=== PATIENT | male | born 1990 | race Hispanic/Latino ===

== ENCOUNTER 2017-06-06 07:27 | Emergency (ER) | payer MEDICAID | END 2017-06-06 08:29 | disposition home or self-care (01) | LOC: EDH 07:27 | DX: K21.9 Gastro-esophageal reflux disease without esophagitis (principal); Z87.891 Personal history of nicotine dependence; Z88.8 Allergy status to other drugs, medicaments and biological substances | CPT/HCPCS: 99281 ==

== ENCOUNTER 2017-09-14 15:11 | Emergency (ER) | payer MEDICAID ==
[2017-09-14] MEDS ORDERED: ACETAMINOPHEN 325 MG TAB ONE (15:23)
== END 2017-09-14 16:27 | disposition home or self-care (01) ==
LOC: EDH 15:11
DX: S63.8X1A Sprain of other part of right wrist and hand, initial encounter (principal); K21.9 Gastro-esophageal reflux disease without esophagitis; Z87.891 Personal history of nicotine dependence; W22.8XXA Striking against or struck by other objects, initial encounter; Y93.89 Activity, other specified; Y92.098 Other place in other non-institutional residence as the place of occurrence of the external cause; Y99.8 Other external cause status
CPT/HCPCS: 73130

== ENCOUNTER 2024-08-17 07:20 | Emergency (ER) | payer BC, MEDICAID ==
[~2024-08-17] VITALS: Ht 172.7 cm; Wt 77.1 kg
[2024-08-17 07:57] LABS: COVID19 (SARS ANTIGEN RAPID) PRESUMPTIVE NEGATIVE (NEGATIVE); INFLUENZA TYPE A Negative For Type A (NEGATIVE); INFLUENZA TYPE B Negative For Type B (NEGATIVE)
[2024-08-17] MEDS ORDERED: acetaMINOPHEN 500 MG TABLET PO ONE (08:00)
[2024-08-17] MEDS: Solu-medROL 125MG VIAL IM ONE (08:02)
[2024-08-17] MEDS: acetaMINOPHEN 500 MG TABLET PO ONE (08:02)
[2024-08-17] MEDS: IpraTROPium/alBUTERol SULFATE 3 ML SOLUTION IH ONE (08:03)
[2024-08-17 08:05] VITALS: PULSE 119; RESP 20
[2024-08-17 08:42] VITALS: BP 170/107; PULSE 87; RESP 20; TEMP 98.3; O2SAT 100
--- NOTE | 2024-08-17 09:01 | ERN ---
General Chief Complaint: Cough Stated Complaint: COLD/FLU Time Seen by MD: 07:41 Source: patient History of Present Illness Initial Comments PATIENT IS A 34-YEAR-OLD MALE COMING IN TO BE EVALUATED FOR FLU-LIKE SYMPTOMS. PER PATIENT HE WAS EXPOSED TO FLU BY HIS SON. HE STATES THAT HIS SON WAS NOT POSITIVE BUT HAS SIMILAR SYMPTOMS HE HAS A. PATIENT WAS STATE HE HAS BEEN HAS A SORE THROAT WELL. Allergies: Coded Allergies: No Known Drug Allergies (Unverified Allergy, Unknown, 08/17/24) Past Medical History Past Medical History: No Pertinent History Past Surgical History: None ROS Dictation CONSTITUTIONAL: CHILLS, NO FEVER, NO WEAKNESS, NO DIAPHORESIS, NO MALAISE. HEAD/FACE: NO SIGNS OF TRAUMA. EENT: NO EYE PAIN, NO BLURRED VISION, NO TEARING, NO DOUBLE VISION, NO EAR PAIN, NO EAR DISCHARGE, NO NOSE PAIN, NO NASAL CONGESTION, NO THROAT PAIN, NO THROAT SWELLING, NO MOUTH PAIN. RESPIRATORY: COUGH, NO ORTHOPNEA, NO SOB, NO STRIDOR, NO WHEEZING. CARDIOVASCULAR: NO CHEST PAIN, NO EDEMA, NO PALPITATIONS, NO SYNCOPE. GASTROINTESTINAL/ABDOMINAL: NO ABDOMINAL PAIN, NO CONSTIPATION, NO DIARRHEA, NO NAUSEA, NO VOMITING. GENITOURINARY: NO ABNORMAL DISCHARGE, NO DYSURIA, NO FREQUENT URINATION, NO HEMATURIA. NO COMPLAINTS OF PAIN IN THE GENITALS. MUSCULOSKELETAL: NO BACK PAIN, NO GOUT, NO JOINT PAIN, NO JOINT SWELLING, NO MUSCLE PAIN, NO MUSCLE STIFFNESS, NO NECK PAIN. INTEGUMENTARY: NO CHANGE IN COLOR, NO CHANGE IN HAIR/NAILS, NO DRYNESS, NO LESION, NO LUMPS, NO RASH. NEUROLOGICAL/PSYCH: NO ANXIETY, NOT DEPRESSED, NO EMOTIONAL PROBLEM, NO HEADACHE, NO NUMBNESS, NO PRE-EXISTING DEFICIT, NO HISTORY OF SEIZURES, NO TREMORS, NO WEAKNESS. HEMATOLOGIC/LYMPHATIC: NOT ANEMIC, NO HISTORY OF BLOOD CLOTS, NO APPARENT BLEEDING, NO BRUISING, GLANDS NOT SWOLLEN. ALL SYSTEMS NEGATIVE, EXCEPT NOTED. Physical Exam Physical Exam Dictation VITAL SIGNS: REVIEWED. GENERAL APPEARANCE: ALERT, ORIENTED X3, NO ACUTE DISTRESS, OBESE. HEAD AND FACE: NON-TRAUMATIC. EYES: PERRL, PINK CONJUNCTIVAS, EYELID NO TRAUMA, ANTERIOR CHAMBER CLEAR. EARS: PINNAS INTACT AND NO SIGNS OF TRAUMA OR ERYTHEMA. EAR CANALS CLEAR AND NO DISCHARGE. TMS NO ERYTHEMA. NOSE: NO DISCHARGE, NO BLEEDING. OROPHARYNX: MOUTH NORMAL, TEETH NO CARIES, TONGUE PINK. PHARYNX CLEAR, NO ERYTHEMA. TONSILS NO EXUDATES, NO ABSCESSES NOTED. MUCOUS MEMBRANE MOIST. NECK: SUPPLE, NON-TENDER, NO THYROMEGALY, NO MASSES, NO JVD, NO BRUITS. BREAST: DEFERRED. CHEST: NO TENDERNESS, NO CREPITUS, NO PARADOXICAL MOVEMENT, NO RETRACTIONS. LUNGS: CLEAR, WELL-VENTILATED, SYMMETRIC, NO RALES, NO WHEEZING, NO RHONCHI, NO STRIDOR, GOOD BREATH SOUNDS BILATERALLY. HEART: REGULAR RATE, REGULAR RHYTHM, NO MURMUR, NO GALLOPS. VASCULAR: NO PERIPHERAL EDEMA. ABDOMEN: SOFT, POSITIVE BOWEL SOUNDS, NONDISTENDED, NO GUARDING, NONTENDER, NO REBOUND, NO MASSES NO HEPATOMEGALY, NO SPLENOMEGALY, NO REEDER'S SIGN, NO HERNIAS. RECTAL: DEFERRED. GENITAL: DEFERRED. NEUROLOGICAL: NORMAL SPEECH, GROSS MOTOR FUNCTION INTACT, GROSS SENSORY FUNCTION INTACT. MUSCULOSKELETAL: NECK NONTENDER, FULL RANGE OF MOTION, BACK NONTENDER, FULL RANGE OF MOTION. EXTREMITIES: NONTENDER, FULL RANGE OF MOTION. SKIN: COLOR PINK, DRY, NO TURGOR, NO RASH, NO LACERATIONS, NO ABRASIONS, NO CONTUSIONS. LYMPHATICS: DEFERRED. Results Laboratory and Microbiology Lab and Micro Result Laboratory Tests Test 08/17/24 07:00 08/17/24 08:35 Influenza Type A Antigen Negative For Type A Influenza Type B Antigen Negative For Type B SARS-CoV-2 Antigen (Rapid) PRESUMPTIVE NEGATIVE Group A Streptococcus Rapid negative (NEGATIVE) Labs Reviewed?: Yes MDM MDM: DIFFERENTIAL DIAGNOSIS: URI, COVID, FLU, STREP RATIONALE: TESTS CONSIDERED AND ORDERED SECONDARY TO SHARED DECISION MAKING INCLUDE: PATIENT IS A 34-YEAR-OLD MALE COMING IN TO BE EVALUATED FOR URI SYMPTOMS. LABORATORY WORKUP NEGATIVE. PATIENT DID HAVE SORE THROAT PATIENT WILL BE DISCHARGED WITH ANTIBIOTICS FOR SINUSITIS AND PHARYNGITIS. ED Course Orders Procedure Category Date Status Time Covid19 (Sars Antigen LAB 08/17/24 Complete Rapid) 07:29 Influenza Type A & B, LAB 08/17/24 Complete Rapid 07:29 Acetaminophen 500mg PHA 08/17/24 Complete Tab (Tylenol 500mg T 08:00 Rapid (Group A Strep) LAB 08/17/24 Complete 07:45 Ipratropium/Albuterol PHA 08/17/24 Complete Neb (Duoneb) 08:00 Methylprednisolone PHA 08/17/24 Complete Succ 125mg (Solu-Medr 08:00 Acetaminophen 500mg PHA 08/17/24 Complete Tab (Tylenol 500mg T 08:00 Current Medications Medications (Trade) Dose Ordered Sig/Mendez Route PRN Reason Start Time Stop Time Status Last Admin Dose Admin Acetaminophen (TYLenol 500MG TAB) 1,000 mg ONCE ONCE PO 08/17/24 08:00 08/17/24 07:54 DC Acetaminophen (TYLenol 500MG TAB) 1,000 mg ONCE ONCE PO 08/17/24 08:00 08/17/24 08:01 DC 08/17/24 08:02 Albuterol (DUOneb) 2 udvial ONCE ONCE IH 08/17/24 08:00 08/17/24 08:01 DC 08/17/24 08:03 Methylprednisolone Sodium Succinate (Solu-medROL 125MG) 125 mg ONCE ONCE IM 08/17/24 08:00 08/17/24 08:01 DC 08/17/24 08:02 Vital Signs Date Time Temp Pulse Resp B/P (MAP) Pulse Ox O2 Delivery O2 Flow Rate FiO2 08/17/24 08:42 98.2 87 20 170/107 100 Room Air* 0 21 08/17/24 08:05 119 20 08/17/24 07:32 97.5 120 20 142/100 100 Room Air* 0 21 08/17/24 07:24 97.5 120 20 142/100 100 Room Air 0 DX & DISP Disposition: Discharge Departure Impression: Primary Impression: Sinusitis Additional Impression: URI (upper respiratory infection) Condition: Stable Scripts Fluticasone Propionate (Flonase Nasal [place]) 50 Mcg/Actuation [place] 2 SPRAY NS DAILY, #16 GM 0 Refills Prov: TERRI LANGE MD 08/17/24 Amoxicillin (Amoxicillin) 500 Mg Capsule 1 CAP PO TID for 10 Days, #30 CAP 0 Refills Prov: TERRI LANGE MD 08/17/24 Additional Instructions: FOLLOW-UP WITH PRIMARY CARE PROVIDER IN 1 TO 2 DAYS. TAKE MEDICATIONS DIRECTED HERE IN THE EMERGENCY ROOM. OKAY TO CONTINUE HOME MEDICATIONS UNLESS OTHERWISE DISCUSSED DURING YOUR VISIT IN THE EMERGENCY ROOM TODAY. RETURN TO YOUR NEAREST EMERGENCY ROOM IF SYMPTOMS WORSEN OR IF THERE IS NO IMPROVEMENT. CALL 911 IF YOU NEED IMMEDIATE ASSISTANCE. TAKE TYLENOL ABRF-BGR-EXEVHUT NEEDED AND IF NO CONTRAINDICATIONS ARE PRESENT. INCREASE ORAL HYDRATION. A WOUND CULTURE OR URINE CULTURE WAS ORDERED HERE IN THE EMERGENCY ROOM DEPARTMENT PLEASE FOLLOW-UP WITH PRIMARY CARE PROVIDER AND ADVISE THEM TO GET REPEAT PORTS FROM OUR FACILITY. IF YOU HAD ANY MANA WRAP/SPLINTS THAT WERE APPLIED HERE, PLEASE DO NOT REMOVE THEM UNTIL YOU SEE YOUR PRIMARY CARE OR SPECIALTY. REFERRALS: Referrals: GIGI MCCARTNEY (PCP) Time of Disposition: 09:04 TERRI LANGE MD Aug 17, 2024 09:01
[2024-08-17] MEDS ORDERED: AMOX500C2 PO (09:05)
[2024-08-17] MEDS ORDERED: FLUT16H NS (09:05)
--- NOTE | 2024-08-17 09:13 | NUR ---
PT STABLE AAOX4, PT IS IN NO DISTRESS, VITALS WNL NO C/O PAIN PT STATES HE FEELS BETTER NOW. TWO RX GIVEN TO PT WILL START TODAY. PT DRIVEN HOME BY .
== END 2024-08-17 09:23 | disposition home or self-care (01) ==
LOC: EDH 07:20
DX: J32.9 Chronic sinusitis, unspecified (principal); J06.9 Acute upper respiratory infection, unspecified; Z20.822 Contact with and (suspected) exposure to COVID-19
CPT/HCPCS: 99284; 87426; 87880; 87804 ×2; 96372; 94640; J2919

== ENCOUNTER 2024-12-16 18:51 | Emergency (ER) | payer OTHER ==
[~2024-12-16] VITALS: Ht 170.2 cm; Wt 77.1 kg
[~2024-12-16 18:51] MED LIST: AMOX500C2 PO; FLUT16H NS
--- NOTE | 2024-12-16 19:12 | ERN ---
ED Note History of Present Illness Stated Complaint: MUSCLE CRAMPS TO BUE Chief Complaint: Upper Extremity Pain/Injury Time Seen by MD: 18:54 Time Seen by Midlevel: 18:55 Dictation: 34-year-old male who presents to the emergency department due to concern of having over worked after having been carrying some heavy objects yesterday. He states that he has some cramping to his upper extremities. At this time, he is concerned due to the fact that the temperature was very hot outside when he was doing this work. Patient states that this occurred to him 1 time a long time ago believes that this might be related to that. He denies having sustained any trauma associated with this. Upon initial evaluation, the patient presents with a normal neurovascular examination. Allergies: Coded Allergies: No Known Drug Allergies (Unverified Allergy, Unknown, 08/17/24) Emergency Care HOTEL ATTENDANT: None Home Meds Active Scripts Fluticasone Propionate (Flonase Nasal [place]) 50 Mcg/Actuation [place], 2 SPRAY NS DAILY, #16 GM 0 Refills Prov:TERRI LANGE MD 08/17/24 Amoxicillin (Amoxicillin) 500 Mg Capsule, 1 CAP PO TID for 10 Days, #30 CAP 0 Refills Prov:TERRI LANGE MD 08/17/24 Past Medical History Past Medical History: No Pertinent History Surgical History: None PSYCH History: no pertinent psych hx RN Note Reviewed/Agreed w/PFSH: Yes Review of System Dictation MS/Extremity: Cramping of upper extremities Initial Vital Sign VS Vital Signs Date Time Temp Pulse Resp B/P (MAP) Pulse Ox O2 Delivery O2 Flow Rate FiO2 12/16/24 18:52 98.2 91 16 142/86 99 Room Air 0 12/16/24 18:57 21 Physical Exam Dictation General: awake, alert, NAD Head/Face: Normocephalic, atraumatic Eyes: PERRL, EOMI, vision at baseline ENT: oral cavity clear, TMs clear, no signs of infection Neck: Trachea midline, supple, no nuchal rigidity Cardiovascular: RRR, normal S1/S2, No MRGs, no JVD Respiratory: CTAB, no respiratory distress, No rales or wheezes Abdomen: Soft, non-tender, non-distended, normal bowel sounds, no guarding or rebound. Skin: Warm, dry, normal turgor, no rash MS/Extremity: Pulses equal, no cyanosis, neurovascular intact, FROM Neuro: COAx4, GCS 15, strength 5/5, CN 2-12 intact, normal cerebellar exam, normal gait, Psych: Normal behavior, mood, and affect normal ED Course ED Course Orders Procedure Category Date Status Time Basic Metabolic Panel LAB 12/16/24 Logged 19:00 Creatine Kinase, Total LAB 12/16/24 Logged 19:00 Creatine Kinase, Total LAB 12/16/24 Logged 19:02 Vital Signs Date Time Temp Pulse Resp B/P (MAP) Pulse Ox O2 Delivery O2 Flow Rate FiO2 12/16/24 20:22 98.2 84 16 134/82 99 Room Air* 0 21 12/16/24 18:57 98.2 91 16 142/86 99 Room Air* 0 21 12/16/24 18:52 98.2 91 16 142/86 99 Room Air 0 Medical Decision Making MDM MDM: Differential diagnosis: Cramping of the arms, rhabdomyolysis, electrolyte imbalance. Rationale: Tests considered and ordered secondary to shared decision making incl ude: Previous outside records reviewed: Old ER visits. Risk of complication and/or morbidity or mortality of patient management: None Medications-Per medication reconciliation Need for hospitalization: Patient does not meet criteria for hospitalization. Need for emergency major/minor surgery: No There are no social concerns with this patient. Prescription drug management Prescriptions will include symptomatic care Patient's prior external medical records from other ER visits were reviewed by me as indicated. Prior testing and results from previous visits were reviewed. Prior tests were taken into account with medical decision making and resource utilization, independent historian/historians were used to obtain complete medical history. I independently interpreted the test that were performed, results were reviewed by me and considered findings on radiology if ordered. Medical management and examination interpretation discussions were had by me with other qualified healthcare professionals as indicated for the patient's care. An MDM was not able to be fully complete due to the patient eloping from the emergency department. DX & DISP Disposition: Discharge Departure Impression: Primary Impression: Cramp of muscle of both upper extremities Condition: Other(comment) (Eloped) Referrals: SELF,REFERRAL (PCP) BAL LOMBARDO Dec 16, 2024 19:12
[2024-12-16 20:22] VITALS: BP 134/82; PULSE 84; RESP 16; TEMP 98.2; O2SAT 99
== END 2024-12-16 20:51 | disposition left against medical advice (07) ==
LOC: EDH 18:51
DX: R25.2 Cramp and spasm (principal); Z79.899 Other long term (current) drug therapy
CPT/HCPCS: 99282; 99283